=== PATIENT | male | born 1980 ===

== ENCOUNTER → 2022-03-05 | Emergency (ER) | payer OTHER ==
[~2022-03-05] VITALS: Ht 177.8 cm; Wt 85.0 kg
[~2022-03-05] MED LIST: AMPICILLIN/SULBACTAM INJECTION 3 GM in NS (IVPB) 100 ML IV ONE; LACTATED RINGERS 1,000 ML IV STA; LACTATED RINGERS IV STA; NS IV 1000 ML 1,000 ML IV SCH; TETANUS,DIPTH,PERTUSS P/F (BOOSTRIX) 0.5 ML VIAL IM ONE; fentaNYL INJ 100 MCG/2 ML AMP ONE
[2022-03-05 02:26] LABS: BASOPHILS # (AUTO) 0.1 10^3/uL (0.0-0.1); BASOPHILS % (AUTO) 1 % (0-10); EOSINOPHILS # (AUTO) 0.2 10^3/uL (0.0-0.3); EOSINOPHILS % (AUTO) 1 % (0-10); HEMATOCRIT 38 % (40-54); HEMOGLOBIN 13.4 g/dL (13.3-17.7); LYMPHOCYTES # (AUTO) 5.9 10^3/uL (1.0-4.0); LYMPHOCYTES % (AUTO) 50 % (12-44); MEAN CORPUSCULAR HEMOGLOBIN 31 pg (25-34); MEAN CORPUSCULAR HGB CONC 36 g/dL (32-36); MEAN CORPUSCULAR VOLUME 86 fL (80-99); MEAN PLATELET VOLUME 10.6 fL (9.0-12.2); MONOCYTES # (AUTO) 0.8 10^3/uL (0.0-1.0); MONOCYTES % (AUTO) 7 % (0-12); NEUTROPHILS # (AUTO) 4.8 10^3/uL (1.8-7.8); NEUTROPHILS % (AUTO) 40 % (42-75); PLATELET COUNT 221 10^3/uL (130-400); WHITE BLOOD COUNT 11.8 10^3/uL (4.3-11.0)
[2022-03-05 02:32] LABS: ALBUMIN 4.2 GM/DL (3.2-4.5); CHLORIDE 102 MMOL/L (98-107); INR 1.1 (0.8-1.4); POTASSIUM 3.4 MMOL/L (3.6-5.0); PROTHROMBIN TIME PATIENT 14.1 SEC (12.2-14.7); SODIUM 138 MMOL/L (135-145)
[2022-03-05 02:33] LABS: CALCIUM 8.5 MG/DL (8.5-10.1)
[2022-03-05 02:34] LABS: GLUCOSE 150 MG/DL (70-105); TOTAL PROTEIN 6.7 GM/DL (6.4-8.2)
[2022-03-05 02:35] LABS: CARBON DIOXIDE 20 MMOL/L (21-32)
[2022-03-05 02:36] LABS: BILIRUBIN,TOTAL 0.8 MG/DL (0.1-1.0)
[2022-03-05 02:38] LABS: ALKALINE PHOSPHATASE 42 U/L (40-136); CREATININE SERUM 1.09 MG/DL (0.60-1.30); GFR ESTIMATED 88
[2022-03-05 02:39] LABS: BUN/CREATININE RATIO 21
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
[2022-03-05 02:41] LABS: ALANINE AMINOTRANSFERASE 35 U/L (0-55)
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
[2022-03-05 04:38] VITALS: BP 135/84
--- NOTE | 2022-03-05 06:11 | Diagnostic Imaging Report ---
INDICATION: Left forearm injury AP view of the left forearm shows dislocation of the elbow with foreshortening. There are no obvious fractures. There is soft tissue disruption with several small radiopaque foreign bodies projecting in soft tissues around the elbow. IMPRESSION: Open dislocation left elbow. Dictated by: Dictated on workstation # [id number]
--- NOTE | 2022-03-05 06:13 | Diagnostic Imaging Report ---
INDICATION: Left forearm injury Two views of the left arm show dislocation of the elbow with foreshortening. There is soft tissue disruption and several small radiopaque granular foreign bodies projecting over the soft tissues. IMPRESSION: Open dislocation left elbow Dictated by: Dictated on workstation # [id number]
== END ==
LOC: ER 02:05
DX: S42.302B Unspecified fracture of shaft of humerus, left arm, initial encounter for open fracture (principal); S52.92XB Unspecified fracture of left forearm, initial encounter for open fracture type I or II; Z28.310 Unvaccinated for COVID-19; V49.9XXA Car occupant (driver) (passenger) injured in unspecified traffic accident, initial encounter; Y92.410 Unspecified street and highway as the place of occurrence of the external cause
CPT/HCPCS: 29105; 73060; 73090; 80053; 85025; 85610; 85730; 86850; 86900; 86901; 99285; G0480; 36415; 80320